=== PATIENT | male | born 1980 | race Caucasian/White ===

== ENCOUNTER 2017-12-07 10:55 | Day surgery (SDC) | payer BC ==
[~2017-12-07 10:55] MED LIST: Buffered Lidocaine 0.9% SYRIN* 5 ML/SYR SYRINGE INTRADERM ONE; Dexamethasone TAB* 4 MG ONE; Dexamethasone TAB* 4 MG PO ONE; DiMENhydriNATE IV* 50 MG/ML VIAL IV PUSH PRN; Famotidine IV* 10 MG/ML 2 ML (20 mg) IV ONE; Famotidine IV* 10 MG/ML 2 ML (20 mg) ONE; Morphine VIAL* 4 MG/ML VIAL (1 ml vial) IV PRN; Naloxone* 0.4 MG/ML 1 ML VIAL IV PRN; Ondansetron ODT TAB* 4 MG ONE; Ondansetron TAB* 4 MG PO ONE; PROCHLORPERAZINE INJ 5 MG/ML 2 ML VIAL IV PRN; Scopolamine 1.5 mg* PATCH TRANSDERM PRN; fentaNYL* 50 MCG/ML 2 ML VIAL (100 MCG VIAL) IV PRN; oxyCODONE/Acetamin 5/325 MG* TAB PO PRN
[2017-12-07] MEDS ORDERED: Lidocaine 1% INJ* 10 MG/ML 30 ML SDV ONE (11:31)
[2017-12-07] MEDS ORDERED: ceFAZolin 2 GM PREMIX in ORs 2 GM/50 ML BAG IVPB ONE (11:33)
[2017-12-07] MEDS ORDERED: fentaNYL* 50 MCG/ML 2 ML VIAL (100 MCG VIAL) ONE (11:39)
[2017-12-07] MEDS ORDERED: KETAMINE HCL* 50 MG/ML 10 ML VIAL ONE (11:39)
[2017-12-07] MEDS ORDERED: Midazolam* 1 MG/ML 5 ML VIAL (5 MG) ONE (11:40)
[2017-12-07] MEDS ORDERED: Propofol* 10 MG/ML 20 ML BTL IV PUSH ONE (12:04)
[2017-12-07] MEDS ORDERED: Lidocaine 2% PF * 5 ML VIAL ONE (12:04)
[2017-12-07] MEDS ORDERED: Ketorolac INJ* 30 MG/ML 1 ML VIAL ONE (12:04)
[2017-12-07] MEDS ORDERED: Metoprolol Tartrate IV* 1 MG/ML 5 ML VIAL ONE (13:03)
[2017-12-07 14:26] VITALS: BP 129/75
--- NOTE | 2017-12-08 06:05 | OP ---
DATE OF OPERATION: 12/07/17 [facility] DATE OF : 76 SURGEON: Ynes Ingram MD. HOSPICE EXECUTIVE DIRECTOR: TARA Esteban. ANESTHESIA: General. PRE-OP DIAGNOSES: Crushing injury to left ring finger with a flexor tendon laceration, nerve laceration, and middle phalanx fracture. POST-OP DIAGNOSES: Left ring finger crushing injury with a flexor tendon laceration, crush injury of the nerves but no laceration, and a comminuted fracture of the middle phalanx, nondisplaced. OPERATIVE PROCEDURE: Left ring finger exploration and flexor tendon repair. ESTIMATED BLOOD LOSS: Zero. TOURNIQUET TIME: About 51 minutes. INDICATION FOR PROCEDURE: Camden is a 37-year-old male who was working on a car, he dropped the transmission on his left hand and suffered an injury of the ring finger. There was a comminuted nondisplaced fracture of the middle phalanx. He has numbness distal to the laceration and no flexion at the DIP joint. He presents for wound exploration and repair. DESCRIPTION OF PROCEDURE: The patient was brought to the operating room, given a general anesthetic, and placed in the supine position on the operating table with the tourniquet around his left upper arm. The skin of his left upper extremity was prepped and draped in the usual sterile fashion. The hand and forearm were exsanguinated and the tourniquet elevated to 250 mmHg. The sutures were removed and the wound was explored. The digital nerves were intact , but had suffered a crush injury. The fracture of the middle phalanx was nondisplaced. There was a complete laceration of the FDS and FDP tendons at the level of the A4 ric. The wound was irrigated with saline. The proximal portion of the tendon was retrieved within the ric system, but we had to sacrifice the A4 ric because the repair was directly under the ric. A 4- core 4-0 Prolene suture was used to repair the tendon and then a 6-0 nylon epitendinous suture was used to secure the free edges of the tendon. This gave a nice repair, there was no gaping with range of motion. The wound was again irrigated and the skin edges were reapproximated with 4-0 nylon suture. The wound was dressed with Xeroform, 4x4, Webril, and a dorsal extension locking splint the patient had made by the hand therapist. The patient tolerated the procedure well and was brought to the recovery room in good condition. [id number]/[facility] #: [id number] KALIE
[2017-12-10] MEDS ORDERED: Scopolamine PATCH Remove* 1 NOTE MISC PATCH OFF ONE (05:58)
== END 2017-12-07 14:27 | disposition home or self-care (01) ==
LOC: OREAST 10:55
PROVIDERS: ATTEND Orthopaedic Surgery
DX: S66.125A Laceration of flexor muscle, fascia and tendon of left ring finger at wrist and hand level, initial encounter (principal); S64.495A Injury of digital nerve of left ring finger, initial encounter; S67.197A Crushing injury of left little finger, initial encounter; S62.655B Nondisplaced fracture of middle phalanx of left ring finger, initial encounter for open fracture; F17.210 Nicotine dependence, cigarettes, uncomplicated; Z88.2 Allergy status to sulfonamides; X58.XXXA Exposure to other specified factors, initial encounter
CPT/HCPCS: A9270-GY; J0690; J1885; J2250; J2704; J3010; J3490; J8540